=== PATIENT | female | born 1990 | race Caucasian/White ===

== ENCOUNTER 2022-02-01 23:04 | Emergency (ER) | payer OTHER ==
[~2022-02-01] VITALS: Ht 170.2 cm; Wt 70.3 kg
--- NOTE | 2022-02-01 23:45 | NUR ---
TO ER BED 12. BIBRA C/O ETOH AND LAC TO BACK OF HEAD S/P GLF. LAC OPEN TO AIR, 1/2 INCH, WELL APPROXIMATED. PT UNABLE TO PROVIDE INFO AT THIS TIME DUE TO ETOH. CONNECTED TO MONITOR. AWAITING MD MCDONALD
--- NOTE | 2022-02-02 00:01 | NUR ---
PT TAKEN FOR CT SCAN
[2022-02-02] MEDS ORDERED: TDAP [DIPH/PERTUSSIS/TET] 0.5 ML VIAL IM ONE (00:20)
[2022-02-02] MEDS ORDERED: ONDANSETRON HCL/PF 4 MG/2 ML VIAL ONE (00:30)
[2022-02-02 00:52] LABS: BASOPHILS % (AUTO) 0.4 % (0.0-2.0); EOSINOPHILS % (AUTO) 0.7 % (0.0-6.0); HEMATOCRIT 45 % (33-45); HEMOGLOBIN 14.9 g/dL (11.5-14.8); LYMPHOCYTES # (AUTO) 1.9 K/uL (0.8-4.8); LYMPHOCYTES % (AUTO) 19.9 % (20.0-44.0); MEAN CORPUSCULAR HGB CONC 33 g/dl (31.0-36.0); MEAN CORPUSCULAR VOLUME 97 fL (82-100); MONOCYTES # (AUTO) 0.4 K/uL (0.1-1.30); MONOCYTES % (AUTO) 4.4 % (2.0-12.0); NEUTROPHILS # (AUTO) 7.1 K/uL (1.8-8.9); NEUTROPHILS % (AUTO) 74.6 % (43.0-81.0); PLATELET COUNT (AUTO) 254 K/uL (150-450); RED BLOOD CELL COUNT(AUTO) 4.66 MIL/uL (4.0-5.2); WHITE BLOOD COUNT (AUTO) 9.5 K/uL (4.3-11.0)
[2022-02-02] MEDS: ONDANSETRON HCL/PF - ER 4 MG/2 ML VIAL IV ONE (00:57)
[2022-02-02] MEDS: TDAP [DIPH/PERTUSSIS/TET] 0.5 ML VIAL IM ONE (00:57)
[2022-02-02] MEDS: IV NS 0.9% 1,000 ML BAG IV ONE (00:57)
--- NOTE | 2022-02-02 01:00 | NUR ---
IV LINE ESTABLISHED , RHAND 24G
[2022-02-02 01:04] LABS: CALCIUM, SERUM 8.9 mg/dL (8.5-10.1); CREATININE 0.8 mg/dL (0.6-1.3); POTASSIUM 3.6 mmol/L (3.5-5.1)
[2022-02-02 01:13] LABS: ALBUMIN 4.6 g/dL (3.4-5.0); BILIRUBIN,DIRECT 0.1 mg/dL (0.0-0.2); BILIRUBIN,TOTAL 0.2 mg/dL (0.2-1.0); TOTAL PROTEIN, SERUM 8.4 g/dL (6.4-8.2)
--- NOTE | 2022-02-02 02:03 | NUR ---
PT AMBULATED TO BATHROOM WITH ASSISTANCE, STEADY GAIT NOTED
[2022-02-02 02:33] LABS: BILIRUBIN,URINE NEGATIVE (NEGATIVE); COLOR,URINE YELLOW (YELLOW); LEUKOCYTE ESTERASE ,URINE NEGATIVE (NEGATIVE); NITRITE, URINE NEGATIVE (NEGATIVE); PROTEIN,URINE NEGATIVE (NEGATIVE); UGLUCOSE NEGATIVE (NEGATIVE); UROBILINOGEN,URINE 0.2 EU/dL (0.2)
[2022-02-02 04:38] VITALS: BP 129/70
--- NOTE | 2022-02-02 04:39 | NUR ---
Patient discharged to home in stable condition. Written and verbal after care instructions given. Patient verbalizes understanding of instruction.
[2022-02-02 07:30] LABS: RBC,URINE 0-2 /HPF (0-2); WBC,URINE 0-2 /HPF (0-3)
[2022-02-02 07:31] LABS: BACTERIA,URINE Few /HPF (None Seen); SQUAMOUS EPITHELIAL CELL,UR Moderate /HPF (None Seen)
== END 2022-02-02 04:40 | disposition home or self-care (01) ==
LOC: ER 23:23
DX: S01.01XA Laceration without foreign body of scalp, initial encounter (principal); Z60.2 Problems related to living alone; X58.XXXA Exposure to other specified factors, initial encounter; Y93.89 Activity, other specified; Y92.89 Other specified places as the place of occurrence of the external cause; Y99.8 Other external cause status
CPT/HCPCS: 12002; 36415; 70450; 72125; 80048; 80076; 80143; 80307; 80320; 81001; 83690; 84703; 85025; 90471; 90715; 96361; 96374; 99284; A6403; J2405 ×2; J7030; G0480